=== PATIENT | female | born 1980 | race Caucasian/White ===

== ENCOUNTER 2017-04-28 14:29 | Emergency (ER) | payer MEDICAID ==
[~2017-04-28] VITALS: Ht 165.1 cm; Wt 113.4 kg
[~2017-04-28 14:29] MED LIST: LEV500T PO; TRAZ100T2 PO; ZIPR80CA8 PO
[2017-04-28 14:32] VITALS: BP 188/168
== END 2017-04-28 15:30 | disposition left against medical advice (07) ==
LOC: ER 14:29
DX: R10.10 Upper abdominal pain, unspecified (principal); Z76.0 Encounter for issue of repeat prescription; Z53.21 Procedure and treatment not carried out due to patient leaving prior to being seen by health care provider

== ENCOUNTER → 2018-05-31 | Emergency (ER) | payer MEDICAID | END | disposition left against medical advice (07) | LOC: ER 18:32 | DX: R10.9 Unspecified abdominal pain (principal); Z53.21 Procedure and treatment not carried out due to patient leaving prior to being seen by health care provider ==

== ENCOUNTER 2019-05-01 14:20 | Emergency (ER) | payer MEDICAID ==
[~2019-05-01] VITALS: Ht 165.1 cm; Wt 95.3 kg
[~2019-05-01 14:20] MED LIST changes: +CIPR-173 PO
[2019-05-01] MEDS ORDERED: ACETAMINOPHEN 500 MG TAB PO ONE (14:45)
[2019-05-01] MEDS ORDERED: cloNIDine HCL 0.1 MG TAB PO ONE (14:45)
[2019-05-01 17:33] VITALS: BP 188/107
[2019-05-01] MEDS ORDERED: HYDROcodone-ACET 7.5/325MG TAB PO ONE (18:00)
== END 2019-05-01 18:31 | disposition home or self-care (01) ==
LOC: ER 14:20
DX: S52.124A Nondisplaced fracture of head of right radius, initial encounter for closed fracture (principal); S63.501A Unspecified sprain of right wrist, initial encounter; I10 Essential (primary) hypertension; F17.210 Nicotine dependence, cigarettes, uncomplicated; F12.10 Cannabis abuse, uncomplicated; F15.10 Other stimulant abuse, uncomplicated; J45.909 Unspecified asthma, uncomplicated; Z88.0 Allergy status to penicillin; W01.0XXA Fall on same level from slipping, tripping and stumbling without subsequent striking against object, initial encounter; Y93.89 Activity, other specified; Y92.89 Other specified places as the place of occurrence of the external cause; Y99.8 Other external cause status
CPT/HCPCS: 29105; 73080; 73090

== ENCOUNTER 2019-09-19 15:13 | Emergency (ER) | payer MEDICAID ==
[~2019-09-19 15:13] MED LIST changes: -TRAZ100T2 PO; +TRAZ100T3 PO
== END 2019-09-19 15:31 | disposition left against medical advice (07) ==
LOC: ER 15:13
DX: J34.0 Abscess, furuncle and carbuncle of nose (principal); Z53.21 Procedure and treatment not carried out due to patient leaving prior to being seen by health care provider

== ENCOUNTER 2020-08-14 01:20 | Emergency (ER) | payer MEDICAID ==
[~2020-08-14] VITALS: Ht 172.7 cm; Wt 99.8 kg
[~2020-08-14 01:20] MED LIST changes: +ZIPR80CA37 PO; -ZIPR80CA8 PO
[2020-08-14 02:24] LABS: Urine Bacteria FEW /hpf (None Seen); Urine Blood 1+ /uL (Negative); Urine Specific Gravity 1.006 (1.001-1.035); Urine WBC 1 /hpf (0 - 5)
[2020-08-14 02:31] LABS: Basophils # (auto) 0 10 ^3/uL (0-0.2); Basophils % (auto) 0.6 % (0.0-2.0); Eosinophils # (auto) 0.1 10 ^3/uL (0-0.8); Eosinophils % (auto) 1.2 % (0.0-7.0); Hemoglobin 12.4 g/dL (12.2-16.2); Lymphocytes # (auto) 2.3 10 ^3/uL (0.4-5.4); Lymphocytes % (auto) 31.1 % (10.0-50.0); Mean Corpuscular Hgb Conc. 32.6 g/dL (32.0-36.0); Mean Corpuscular Volume 82.9 fL (80.0-100.0); Monocytes # (auto) 0.5 10 ^3/uL (0-1.3); Monocytes % (auto) 6.3 % (0.0-12.0); Neutrophils # (auto) 4.6 10 ^3/uL (1.6-8.6); Neutrophils % (auto) 60.8 % (37.0-80.0); Nucleated Red Blood Cells % 0.1 %; Platelet Count (auto) 228 10^3/uL (140-450); Red Blood Cells 4.59 10^6/uL (4.0-5.20); Red Cell Distribution Width 16.4 % (11.8-14.3); White Blood Cell 7.5 10^3/uL (4.4-10.8)
[2020-08-14 02:49] LABS: INR 0.9 (0.9-1.15); Partial Thromboplastin Time 24.7 sec (23.0-31.2)
[2020-08-14 03:03] LABS: Albumin 3.1 g/dL (3.4-5.0); BUN/Creatinine Ratio 13.4; Potassium 3.2 mmol/L (3.5-5.1)
[2020-08-14 03:09] LABS: Bilirubin, Total 0.2 mg/dL (0.2-1.0); Total Protein 7.1 g/dL (6.4-8.2)
[2020-08-14 04:25] VITALS: BP 161/74
== END 2020-08-14 03:44 | disposition short-term general hospital (02) ==
LOC: ER 01:20 → EDBD 01:20 → ER 03:44
DX: I63.9 Cerebral infarction, unspecified (principal); R47.81 Slurred speech; J45.909 Unspecified asthma, uncomplicated; F17.210 Nicotine dependence, cigarettes, uncomplicated; F12.10 Cannabis abuse, uncomplicated; F15.10 Other stimulant abuse, uncomplicated; I10 Essential (primary) hypertension
CPT/HCPCS: 36415; 70450; 71045; 80053; 81001; 84484; 85025; 85610; 85730; 93005

== ENCOUNTER 2021-01-14 03:06 | Emergency (ER) | payer MEDICAID ==
[~2021-01-14] VITALS: Ht 165.1 cm; Wt 111.1 kg
[2021-01-14 03:06] VITALS: BP 213/114
[2021-01-14] MEDS ORDERED: LABETALOL HCL 200 MG TAB PO ONE (03:30)
[2021-01-14] MEDS ORDERED: hydrALAZINE HCL 10 MG TAB PO ONE (03:30)
[2021-01-14] MEDS ORDERED: SODIUM CHLORIDE 0.9% 1,000 ML IV ONE ×2 (06:45)
[2021-01-14] MEDS ORDERED: cefTRIAXone 1GM/50ML D5W 50 ML IV ONE (06:45)
== END 2021-01-14 07:29 | disposition left against medical advice (07) ==
LOC: ER 03:06
DX: L03.114 Cellulitis of left upper limb (principal); Z53.21 Procedure and treatment not carried out due to patient leaving prior to being seen by health care provider

== ENCOUNTER 2021-02-02 12:24 | Emergency (ER) | payer MEDICAID ==
[~2021-02-02] VITALS: Ht 165.1 cm; Wt 90.7 kg
[2021-02-02 12:33] VITALS: BP 222/122
[2021-02-02] MEDS ORDERED: SODIUM CHLORIDE 0.9% 1,000 ML IV ONE (12:45)
[2021-02-02] MEDS ORDERED: cloNIDine HCL 0.1 MG TAB PO ONE (12:45)
[2021-02-02 13:33] LABS: Urine Bacteria MOD /hpf (None Seen); Urine Blood TRACE /uL (Negative); Urine Mucus FEW (None Seen); Urine Specific Gravity 1.015 (1.001-1.035); Urine WBC 14 /hpf (0 - 5)
[2021-02-02 13:44] LABS: Basophils # (auto) 0 10 ^3/uL (0-0.2); Basophils % (auto) 0.6 % (0.0-2.0); Eosinophils # (auto) 0.1 10 ^3/uL (0-0.8); Eosinophils % (auto) 1.5 % (0.0-7.0); Hematocrit 40.7 % (36.0-46.0); Hemoglobin 13.5 g/dL (12.2-16.2); Lymphocytes # (auto) 1.2 10 ^3/uL (0.4-5.4); Lymphocytes % (auto) 16.8 % (10.0-50.0); Mean Corpuscular Hemoglobin 27.9 pg (28.0-32.0); Mean Corpuscular Hgb Conc. 33.1 g/dL (32.0-36.0); Mean Corpuscular Volume 84.3 fL (80.0-100.0); Monocytes # (auto) 0.5 10 ^3/uL (0-1.3); Monocytes % (auto) 6.9 % (0.0-12.0); Neutrophils # (auto) 5.4 10 ^3/uL (1.6-8.6); Neutrophils % (auto) 74.2 % (37.0-80.0); Nucleated Red Blood Cells % 0.1 %; Red Blood Cells 4.82 10^6/uL (4.0-5.20); White Blood Cell 7.3 10^3/uL (4.4-10.8)
[2021-02-02 13:49] LABS: Amphetamine Screen, Urine POSITIVE (NEGATIVE); Barbiturate Scree,Urine NEGATIVE (NEGATIVE); Benzodiazephine Screen, Urine NEGATIVE (NEGATIVE); Cannabinoid Screen, Urine NEGATIVE (NEGATIVE)
[2021-02-02 13:56] LABS: Cocaine Screen, Urine NEGATIVE (NEGATIVE); Opiate Scree,Urine NEGATIVE (NEGATIVE); Phencyclidine Screen, Urine NEGATIVE (NEGATIVE)
[2021-02-02 14:00] LABS: INR 0.94 (0.9-1.15); Partial Thromboplastin Time 24.2 sec (23.6-33.0)
[2021-02-02 14:01] LABS: Blood Urea Nitrogen 9 mg/dL (7-18); Calcium 8.6 mg/dL (8.5-10.1); Carbon Dioxide 27 mmol/L (21-32); Glucose 101 mg/dL (74-106); Magnesium 2.1 mg/dL (1.6-2.6)
[2021-02-02 14:16] LABS: Alanine Aminotransferase 23 U/L (13-56); Alkaline Phosphatase 87 U/L (45-117); Anion Gap 8 (5-15); Aspartate Aminotransferase 15 U/L (15-37); BUN/Creatinine Ratio 7.5; Bilirubin, Total 0.3 mg/dL (0.2-1.0); Chloride 106 mmol/L (98-107); GFR African American 63 mL/min; GFR Non-African American 52 mL/min; Potassium 3.6 mmol/L (3.5-5.1); Sodium 141 mmol/L (136-145); Total Protein 7.4 g/dL (6.4-8.2)
[2021-02-02 14:33] LABS: Beta HCG, Quantitative < 1 mlU/mL (1-3); Thyroid Stimulating Hormone 2.53 uIU/mL (0.358-3.74)
[2021-02-02] MEDS ORDERED: cefTRIAXone 1GM/50ML D5W 50 ML IV ONE (15:00)
== END 2021-02-02 17:45 | disposition left against medical advice (07) ==
LOC: ER 12:24
DX: I63.9 Cerebral infarction, unspecified (principal); I10 Essential (primary) hypertension; N39.0 Urinary tract infection, site not specified; F15.10 Other stimulant abuse, uncomplicated; E46 Unspecified protein-calorie malnutrition; E66.01 Morbid (severe) obesity due to excess calories; Z68.33 Body mass index [BMI] 33.0-33.9, adult; E78.5 Hyperlipidemia, unspecified; J45.909 Unspecified asthma, uncomplicated; F17.210 Nicotine dependence, cigarettes, uncomplicated; F12.10 Cannabis abuse, uncomplicated
CPT/HCPCS: 36415; 70450; 71045; 80053; 80307; 81001; 83735; 84443; 84484; 84702; 85025; 85610; 85730; 93005

== ENCOUNTER 2021-08-11 17:24 | Inpatient (IN) | payer MEDICAID ==
[~2021-08-11] VITALS: Ht 165.1 cm; Wt 113.0 kg
[2021-08-11 18:34] LABS: Eosinophils # (auto) 0.2 10 ^3/uL (0-0.8); Lymphocytes # (auto) 1.7 10 ^3/uL (0.4-5.4); Monocytes # (auto) 0.6 10 ^3/uL (0-1.3); Nucleated Red Blood Cells % 0.1 %; White Blood Cell 8.1 10^3/uL (4.4-10.8)
[2021-08-11 18:36] LABS: Basophils # (auto) 0.1 10 ^3/uL (0-0.2); Eosinophils % (auto) 2.8 % (0.0-7.0); Hematocrit 36.8 % (36.0-46.0); Hemoglobin 11.9 g/dL (12.2-16.2); Lymphocytes % (auto) 21.6 % (10.0-50.0); Mean Corpuscular Hemoglobin 23.7 pg (28.0-32.0); Mean Corpuscular Hgb Conc. 32.3 g/dL (32.0-36.0); Mean Corpuscular Volume 73.5 fL (80.0-100.0); Monocytes % (auto) 7.2 % (0.0-12.0); Neutrophils # (auto) 5.4 10 ^3/uL (1.6-8.6); Neutrophils % (auto) 67.4 % (37.0-80.0); Red Blood Cells 5.01 10^6/uL (4.0-5.20); Red Cell Distribution Width 17.7 % (11.8-14.3)
[2021-08-11 18:44] LABS: Albumin 3.4 g/dL (3.4-5.0); Potassium 3.7 mmol/L (3.5-5.1)
[2021-08-11 18:49] LABS: BUN/Creatinine Ratio 11.3; Bilirubin, Total 0.2 mg/dL (0.2-1.0); Total Protein 7.8 g/dL (6.4-8.2)
[2021-08-11] MEDS ORDERED: hydrALAZINE HCL 20 MG/ML VL IV ONE (19:15)
[2021-08-11 19:48] LABS: INR 0.92 (0.9-1.15); Partial Thromboplastin Time 27.1 sec (23.6-33.0)
[2021-08-11] MEDS ORDERED: hydrALAZINE HCL 20 MG/ML VL IV PRN (21:00)
[2021-08-11 22:09] LABS: Magnesium 1.8 mg/dL (1.6-2.6)
[2021-08-11] MEDS: ATORVASTATIN 20 MG TAB PO SCH (23:11)
[2021-08-11] MEDS ORDERED: HEPARIN SODIUM (PORCINE) 5000 UNITS/ML 1ML VIAL ONE (23:15)
[2021-08-11] MEDS: HEPARIN SODIUM (PORCINE) 5000 UNITS/ML 1ML VIAL SC SCH (23:19)
[2021-08-12] MEDS ORDERED: ACCU-CHEK COMFORT CURVE STRIP VI SCH
[2021-08-12] MEDS: ACCU-CHEK COMFORT CURVE STRIP VI SCH ×4 (00:27→18:00)
[2021-08-12 01:00] VITALS: BP 160/88
[2021-08-12] MEDS: SODIUM CHLORIDE 0.9% 1,000 ML IV SCH ×3 (02:05→17:00)
[2021-08-12] MEDS ORDERED: ASPirin 300 MG RECTAL SUPP PR ONE (02:15)
[2021-08-12] MEDS ORDERED: ASPirin 325 MG TAB PO ONE (02:30)
[2021-08-12 02:49] VITALS: BP 160/88
[2021-08-12] MEDS: InsuLIN REG 1unit/0.01ml Soln (100units/ml) SC SCH ×4 (06:00→18:00)
[2021-08-12] MEDS: HEPARIN SODIUM (PORCINE) 5000 UNITS/ML 1ML VIAL SC SCH ×3 (07:00→21:36)
[2021-08-12 07:15] LABS: Basophils # (auto) 0.1 10 ^3/uL (0-0.2); Basophils % (auto) 1.2 % (0.0-2.0); Eosinophils # (auto) 0.2 10 ^3/uL (0-0.8); Eosinophils % (auto) 3.2 % (0.0-7.0); Hematocrit 33.3 % (36.0-46.0); Lymphocytes % (auto) 27.7 % (10.0-50.0); Mean Corpuscular Hemoglobin 24.5 pg (28.0-32.0); Mean Corpuscular Hgb Conc. 33.1 g/dL (32.0-36.0); Monocytes # (auto) 0.6 10 ^3/uL (0-1.3); Monocytes % (auto) 8.1 % (0.0-12.0); Neutrophils # (auto) 4.2 10 ^3/uL (1.6-8.6); Neutrophils % (auto) 59.8 % (37.0-80.0); Nucleated Red Blood Cells % 0.1 %; Red Cell Distribution Width 17.4 % (11.8-14.3); White Blood Cell 7.1 10^3/uL (4.4-10.8)
[2021-08-12 07:28] LABS: Potassium 3.6 mmol/L (3.5-5.1)
[2021-08-12 07:39] LABS: Albumin 2.9 g/dL (3.4-5.0); BUN/Creatinine Ratio 11.4; Bilirubin, Total 0.3 mg/dL (0.2-1.0); Calcium 8.4 mg/dL (8.5-10.1); Total Protein 6.8 g/dL (6.4-8.2)
[2021-08-12] MEDS ORDERED: ASPirin 300 MG RECTAL SUPP PR SCH (10:00)
[2021-08-12] MEDS ORDERED: LORazepam 2MG/ML-1ML VIAL IV ONE (10:00)
[2021-08-12] MEDS: NICOTINE 7MG/24HR TOPICAL PATCH TD SCH (10:00)
[2021-08-12] MEDS: amLODIPine BESYLATE 5 MG TAB PO SCH (10:00)
[2021-08-12] MEDS: PANTOPRAZOLE 40 MG TAB PO SCH (10:00)
[2021-08-12 12:45] VITALS: BP 183/83
[2021-08-12] MEDS ORDERED: LISINOPRIL 10 MG TAB PO ONE (13:15)
[2021-08-12] MEDS ORDERED: HCTZ 25 MG TAB PO ONE (13:15)
[2021-08-12 16:00] VITALS: BP 158/78
[2021-08-12] MEDS: ATORVASTATIN 20 MG TAB PO SCH (21:35)
[2021-08-12 22:03] VITALS: BP 135/76
[2021-08-13 04:34] VITALS: BP 143/79
[2021-08-13] MEDS: InsuLIN REG 1unit/0.01ml Soln (100units/ml) SC SCH ×5 (06:00→23:40)
[2021-08-13] MEDS: ACCU-CHEK COMFORT CURVE STRIP VI SCH ×5 (06:11→23:39)
[2021-08-13 08:20] VITALS: BP 146/89
[2021-08-13] MEDS: amLODIPine BESYLATE 5 MG TAB PO SCH (10:00)
[2021-08-13] MEDS ORDERED: LISINOPRIL 10 MG TAB PO SCH (10:00)
[2021-08-13] MEDS: PANTOPRAZOLE 40 MG TAB PO SCH (10:00)
[2021-08-13] MEDS: HCTZ 25 MG TAB PO SCH (10:00)
[2021-08-13] MEDS: NICOTINE 7MG/24HR TOPICAL PATCH TD SCH (10:00)
[2021-08-13] MEDS ORDERED: ASPirin 300 MG RECTAL SUPP PR SCH (10:00)
[2021-08-13] MEDS: LISINOPRIL 10 MG TAB PO SCH (10:30)
[2021-08-13] MEDS: ACETAMINOPHEN 325 MG TAB PO PRN ×2 (11:28→22:46)
[2021-08-13 12:25] VITALS: BP 151/98
[2021-08-13] MEDS: HEPARIN SODIUM (PORCINE) 5000 UNITS/ML 1ML VIAL SC SCH ×3 (14:00→22:53)
[2021-08-13 14:25] VITALS: BP 136/68
[2021-08-13 22:00] VITALS: BP 117/83
[2021-08-13] MEDS: ASPirin 300 MG RECTAL SUPP PR SCH (22:00)
[2021-08-13] MEDS: ATORVASTATIN 20 MG TAB PO SCH (22:45)
[2021-08-13] MEDS: SODIUM CHLORIDE 0.9% 1,000 ML IV SCH (23:41)
[2021-08-14 02:24] VITALS: BP 117/83
[2021-08-14 05:00] VITALS: BP 114/77
[2021-08-14] MEDS: HEPARIN SODIUM (PORCINE) 5000 UNITS/ML 1ML VIAL SC SCH ×3 (05:24→21:34)
[2021-08-14] MEDS: ACCU-CHEK COMFORT CURVE STRIP VI SCH ×4 (05:24→23:27)
[2021-08-14] MEDS: InsuLIN REG 1unit/0.01ml Soln (100units/ml) SC SCH ×4 (05:38→23:27)
[2021-08-14] MEDS: ACETAMINOPHEN 325 MG TAB PO PRN (08:45)
[2021-08-14 09:00] VITALS: BP 128/81
[2021-08-14] MEDS: SODIUM CHLORIDE 0.9% 1,000 ML IV SCH ×2 (09:00→19:00)
[2021-08-14] MEDS: HCTZ 25 MG TAB PO SCH (10:00)
[2021-08-14] MEDS: NICOTINE 7MG/24HR TOPICAL PATCH TD SCH (10:00)
[2021-08-14] MEDS: PANTOPRAZOLE 40 MG TAB PO SCH (10:00)
[2021-08-14] MEDS: LISINOPRIL 10 MG TAB PO SCH (10:00)
[2021-08-14] MEDS: amLODIPine BESYLATE 5 MG TAB PO SCH (10:00)
[2021-08-14] MEDS: ASPirin 300 MG RECTAL SUPP PR SCH (10:00)
[2021-08-14 12:44] VITALS: BP 139/84
[2021-08-14 16:25] VITALS: BP 161/76
[2021-08-14 20:53] VITALS: BP 142/75
[2021-08-14] MEDS: ATORVASTATIN 20 MG TAB PO SCH (21:27)
[2021-08-15 04:40] VITALS: BP 112/68
[2021-08-15] MEDS: SODIUM CHLORIDE 0.9% 1,000 ML IV SCH (05:00)
[2021-08-15] MEDS: HEPARIN SODIUM (PORCINE) 5000 UNITS/ML 1ML VIAL SC SCH (05:15)
[2021-08-15] MEDS: ACCU-CHEK COMFORT CURVE STRIP VI SCH (05:16)
[2021-08-15] MEDS: InsuLIN REG 1unit/0.01ml Soln (100units/ml) SC SCH (05:40)
[2021-08-15 08:00] VITALS: BP_SYST 120; BP_SYST 128; BP_DIAS 53; BP_DIAS 81
[2021-08-15 12:00] VITALS: BP 151/101
[2021-08-15 14:04] VITALS: BP 128/81
[2021-08-15] MEDS: HCTZ 25 MG TAB PO SCH (14:35)
[2021-08-15] MEDS: PANTOPRAZOLE 40 MG TAB PO SCH (14:36)
[2021-08-15] MEDS: amLODIPine BESYLATE 5 MG TAB PO SCH (14:36)
[2021-08-15] MEDS: LISINOPRIL 10 MG TAB PO SCH (14:37)
[2021-08-15] MEDS: ASPirin 300 MG RECTAL SUPP PR SCH (14:37)
== END 2021-08-15 14:00 | disposition home or self-care (01) | DRG 190 ==
LOC: ER 17:24 → TELE 20:57 → TELE-WESTW 08-12 00:50
PROVIDERS: ADMIT Internal Medicine; ATTEND Family Medicine
PROC: 5A09357 Assistance with Respiratory Ventilation, Less than 24 Consecutive Hours, Continuous Positive Airway Pressure (ICD-10-PCS; principal; 2021-08-13)
DX: I21.4 Non-ST elevation (NSTEMI) myocardial infarction (principal); I69.351 Hemiplegia and hemiparesis following cerebral infarction affecting right dominant side; E66.9 Obesity, unspecified; I16.1 Hypertensive emergency; G47.10 Hypersomnia, unspecified; I12.9 Hypertensive chronic kidney disease with stage 1 through stage 4 chronic kidney disease, or unspecified chronic kidney disease; F12.90 Cannabis use, unspecified, uncomplicated; N18.30 Chronic kidney disease, stage 3 unspecified; E78.5 Hyperlipidemia, unspecified; F17.210 Nicotine dependence, cigarettes, uncomplicated; F32.A Depression, unspecified; J45.909 Unspecified asthma, uncomplicated; Z20.822 Contact with and (suspected) exposure to COVID-19; R53.81 Other malaise; Z91.14 Patient's other noncompliance with medication regimen; Z68.41 Body mass index [BMI] 40.0-44.9, adult; Z79.82 Long term (current) use of aspirin; Z79.899 Other long term (current) drug therapy; Z82.49 Family history of ischemic heart disease and other diseases of the circulatory system; Z88.0 Allergy status to penicillin; Z98.51 Tubal ligation status; I25.2 Old myocardial infarction
CPT/HCPCS: 36415; 70450; 70551; 80053; 80061; 82962; 83090; 83735; 84439; 84443; 84484; 85025; 85610; 85652; 85730; 92610; 93005; 93306; 96374; 97116; 97163; 97530; G0378

== ENCOUNTER 2021-08-17 18:43 | Emergency (ER) | payer MEDICAID ==
[~2021-08-17] VITALS: Ht 162.6 cm; Wt 117.9 kg
[2021-08-17] MEDS ORDERED: NITROGLYCERIN 2% OINT 1GM PKG TD ONE (19:00)
[2021-08-17] MEDS ORDERED: MORPHINE SULFATE 4 MG/ML SYR/VIAL IV ONE (19:00)
[2021-08-17 20:30] LABS: Basophils # (auto) 0.1 10 ^3/uL (0-0.2); Eosinophils # (auto) 0.2 10 ^3/uL (0-0.8); Eosinophils % (auto) 2.1 % (0.0-7.0); Hematocrit 36.8 % (36.0-46.0); Lymphocytes # (auto) 2.2 10 ^3/uL (0.4-5.4); Mean Corpuscular Hemoglobin 23.9 pg (28.0-32.0); Monocytes % (auto) 5.1 % (0.0-12.0); White Blood Cell 8.8 10^3/uL (4.4-10.8)
[2021-08-17 20:32] LABS: Basophils % (auto) 0.6 % (0.0-2.0); Lymphocytes % (auto) 24.8 % (10.0-50.0); Mean Corpuscular Hgb Conc. 32.6 g/dL (32.0-36.0); Monocytes # (auto) 0.4 10 ^3/uL (0-1.3); Neutrophils # (auto) 5.9 10 ^3/uL (1.6-8.6); Neutrophils % (auto) 67.4 % (37.0-80.0); Nucleated Red Blood Cells % 0.1 %; Red Blood Cells 5.02 10^6/uL (4.0-5.20)
[2021-08-17 20:36] LABS: Albumin 3.8 g/dL (3.4-5.0); BUN/Creatinine Ratio 12.2; Calcium 9.9 mg/dL (8.5-10.1); Mean Corpuscular Volume 73.4 fL (80.0-100.0); Potassium 3.7 mmol/L (3.5-5.1)
[2021-08-17 20:40] LABS: Bilirubin, Total 0.2 mg/dL (0.2-1.0)
[2021-08-18 00:04] VITALS: BP 144/91
== END 2021-08-18 00:25 | disposition home or self-care (01) ==
LOC: EDBD 18:43 → ER 18:46
DX: R07.89 Other chest pain (principal); I12.9 Hypertensive chronic kidney disease with stage 1 through stage 4 chronic kidney disease, or unspecified chronic kidney disease; N18.9 Chronic kidney disease, unspecified; E78.5 Hyperlipidemia, unspecified; F17.210 Nicotine dependence, cigarettes, uncomplicated; F12.10 Cannabis abuse, uncomplicated; F15.10 Other stimulant abuse, uncomplicated; Z98.51 Tubal ligation status; Z86.73 Personal history of transient ischemic attack (TIA), and cerebral infarction without residual deficits; Z88.0 Allergy status to penicillin
CPT/HCPCS: 36415; 71045; 80053; 84484; 85025; 93005